=== PATIENT | male | born 1960 | race Caucasian/White ===

== ENCOUNTER → 2016-09-30 | Outpatient (CLI) | payer BC ==
[~2016-09-30] MED LIST: ALTACE; ASPIRIN PO; ASPIRIN81 M2 PO; AUGMENTIN875 M1 DOB; BYSTOLIC5 MG PO; CRESTOR; CRESTOR10 MG PO; DICYCLOMINE HCL20 MG; IMDUR PO; IMMODIUM1 MG/5 M1 PO; LAMISIL250 MG PO; LASIX20 MG PO; METFORMIN HCL500 M1 PO; METFORMIN PO; NIACIN500 M2 PO; NICODERM C1 PATCH .1 TD; PERCOCET10 PO; PERCOCET5/325 PO; PHENERGAN25 MG PO; PLAVIX PO; PREVACID; RANEXA1000 MG PO; RANEXA500 MG PO; SINGULAIR PO; TOPROL XL; TYLOX 5-500 CA1 EACH; XARELTO20 MG PO; ZYRTEC10 M1 PO; [UNRECOGNIZED DRUG - OTHER]
== END | disposition home or self-care (01) ==
LOC: CRC 12:25
DX: R06.02 Shortness of breath (principal); G47.33 Obstructive sleep apnea (adult) (pediatric); J45.991 Cough variant asthma
CPT/HCPCS: 94060; 94726; 94729